=== PATIENT | male | born 1980 | race Caucasian/White ===

== ENCOUNTER → 2019-05-16 | Outpatient (CLI) | payer OTHER ==
[~2019-05-16] MED LIST: FLEXERIL10 MG PO; LORTAB 5/500 501 TAB PO; MOTRIN 800800 MG/TAB PO; NO HOME MEDICATIONS; NORCO 325 MG-51 TAB PO; OZEMPIC1 MG/0.75 SQ; VICTOZA6 MG/ML SQ
== END ==
LOC: LIGHT 11:51
DX: E88.81 Metabolic syndrome and other insulin resistance (principal); M15.9 Polyosteoarthritis, unspecified; E11.65 Type 2 diabetes mellitus with hyperglycemia; E66.01 Morbid (severe) obesity due to excess calories; Z68.41 Body mass index [BMI] 40.0-44.9, adult; Z71.3 Dietary counseling and surveillance

== ENCOUNTER → 2019-06-02 | Outpatient (CLI) | payer OTHER ==
[~2019-06-02] VITALS: Ht 181.6 cm; Wt 134.5 kg
[2019-06-02 15:38] VITALS: BP 110/70; PULSE 100
== END ==
LOC: LIGHT 15:28
DX: E11.65 Type 2 diabetes mellitus with hyperglycemia (principal); E88.81 Metabolic syndrome and other insulin resistance; E66.01 Morbid (severe) obesity due to excess calories; Z68.41 Body mass index [BMI] 40.0-44.9, adult; Z71.3 Dietary counseling and surveillance
CPT/HCPCS: G0463

== ENCOUNTER → 2019-08-25 | Outpatient (CLI) | payer OTHER ==
[~2019-08-25] VITALS: Ht 181.6 cm; Wt 134.7 kg
[2019-08-25 16:21] VITALS: BP 140/82; PULSE 78
== END ==
LOC: LIGHT 08-04 15:06
DX: Z68.41 Body mass index [BMI] 40.0-44.9, adult (principal); E11.9 Type 2 diabetes mellitus without complications; E88.81 Metabolic syndrome and other insulin resistance
CPT/HCPCS: G0463

== ENCOUNTER → 2019-09-26 | Outpatient (CLI) | payer OTHER ==
[~2019-09-26] VITALS: Ht 181.6 cm; Wt 135.4 kg
[2019-09-26 15:41] VITALS: BP 130/80; PULSE 97
== END ==
LOC: LIGHT 11:04
DX: Z68.41 Body mass index [BMI] 40.0-44.9, adult (principal); E11.9 Type 2 diabetes mellitus without complications; E88.81 Metabolic syndrome and other insulin resistance
CPT/HCPCS: G0463

== ENCOUNTER → 2019-12-22 | Outpatient (CLI) | payer OTHER ==
[~2019-12-22] VITALS: Ht 181.6 cm; Wt 131.3 kg
[2019-12-22 16:34] VITALS: BP 140/90; PULSE 76
== END ==
LOC: LIGHT 15:38
DX: E66.01 Morbid (severe) obesity due to excess calories (principal); Z68.39 Body mass index [BMI] 39.0-39.9, adult; E11.9 Type 2 diabetes mellitus without complications
CPT/HCPCS: G0463

== ENCOUNTER → 2020-01-23 | Outpatient (CLI) | payer OTHER | LOC: ZCOL.LAB 15:10 | DX: J02.9 Acute pharyngitis, unspecified (principal); Z20.828 Contact with and (suspected) exposure to other viral communicable diseases ==

== ENCOUNTER → 2020-01-23 | Outpatient (CLI) | payer OTHER | LOC: COL.LAB 08:00 → SDCO 01-25 09:30 → EDSTATUS 01-25 09:30 | DX: E11.9 Type 2 diabetes mellitus without complications (principal); G47.30 Sleep apnea, unspecified; Z20.828 Contact with and (suspected) exposure to other viral communicable diseases ==

== ENCOUNTER → 2021-07-24 | Outpatient (CLI) | payer OTHER | LOC: COL.RAD 12:44 | DX: N50.819 Testicular pain, unspecified (principal) ==